=== PATIENT | female | born 1995 | race Native Hawaiian/Other Pacific Islander ===

== ENCOUNTER 2019-09-27 13:13 | Outpatient (CLI) | payer OTHER | END 2019-09-27 23:59 | disposition home or self-care (01) | LOC: LABW 13:13 | DX: N91.1 Secondary amenorrhea (principal) | CPT/HCPCS: 36415; 84702 ==

== ENCOUNTER 2021-12-11 15:11 | Outpatient (CLI) | payer OTHER | END 2021-12-11 19:37 | disposition home or self-care (01) | LOC: LABW 15:11 | PROVIDERS: ATTEND Obstetrics & Gynecology | DX: N91.1 Secondary amenorrhea (principal) | CPT/HCPCS: 84702 ==